=== PATIENT | female | born 1990 | race African-American/Black ===

== ENCOUNTER 2019-09-30 17:57 | Emergency (ER) | payer OTHER, SELFPAY ==
[2019-09-30 18:04] VITALS: BP 115/78; PULSE 98; RESP 16; TEMP 36.6; O2SAT 100
[2019-09-30] MEDS: SILVER SULFADIAZINE 1% CR 50 GM JAR (*BKC) 1 APPLIC TOPICAL (19:00)
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
[2019-09-30 19:42] VITALS: BP 108/68; PULSE 74; RESP 16; TEMP 36.8; O2SAT 96
== END 2019-09-30 19:42 | disposition home or self-care (01) ==
PROVIDERS: Emergency Provider Emergency Medicine
DX: T25.221A Burn of second degree of right foot, initial encounter (principal); T31.0 Burns involving less than 10% of body surface; W39.XXXA Discharge of firework, initial encounter
CPT/HCPCS: 16020; 99283; A9270

== ENCOUNTER 2020-01-27 22:48 | Emergency (ER) | payer OTHER, SELFPAY ==
--- NOTE | ~2020-01-27 | US_ITS ---
EXAMINATION: US OB <=14 wk fetus w TV DATE: 01/28/2020 00:21 INDICATION: Vaginal bleeding during first trimester TECHNIQUE: Real-time pelvic transabdominal and transvaginal ultrasound was performed. COMPARISON: None. FINDINGS: The uterus measures 8.2 x 5.3 x 5.9 cm. The endometrial thickness measures 17 mm. No intra uterine gestational sac is identified. The right ovary measures 2.5 x 1.5 x 1.4 cm. The left ovary me asures 2.8 x 1.9 x 2.4 cm. There is normal vascular flow in the ovaries. There is no free fluid in th e pelvis. IMPRESSION: 1. of unknown location. Although no intrauterine gestational sac is seen, this may be due t o early gestation. If the patient is clinically stable, recommend followup with serial beta-hCG and u ltrasound. Reviewed, dictated and finalized at location A. 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 of unknown location. Although no intrauterine gestational sac is s een, this may be due to early gestation. If the patient is clinically stable, r ecommend followup with serial beta-hCG and ultrasound.
[2020-01-27 22:52] VITALS: BP 119/82; PULSE 83; RESP 16; TEMP 36.4; O2SAT 99
--- NOTE | 2020-01-27 22:55 | ED.PREGNANCY ---
HPI - General Chief complaint: Vaginal Bleeding Stated complaint: pregant with bleeding. Time Seen by Provider: 01/27/20 22:54 Source: patient and family Mode of arrival: ambulatory Limitations: no limitations History of Present Illness HPI Narrative: Patient is a 29-year-old female G6, P4, TPAL 1132, who presents to the emergency department for evaluation of vaginal bleeding. Patient reports she had a positive at-home test approximately 7 days ago. She states this evening she developed some light vaginal spotting and lower abdominal cramping. She denies back pain, nausea or vomiting. Pain is not severe. No dysuria or hematuria. No brisk bleeding. Patient states she has a history labor and , 2 abortions, 1 spontaneous miscarriage. Patient denies recent sexual intercourse. She denies other vaginal discharge. 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 Pt blood type O positive, verified from previous in chart. Related Data Home Medications Medication Instructions Recorded Confirmed No Home Medications 09/30/19 09/30/19 Allergies Allergy/AdvReac Type Severity Reaction Status Date / Time No Known Allergies Allergy Verified 09/30/19 18:09 Review of Systems Review of Systems: Narrative: CONSTITUTIONAL: Denies fever CARDIOVASCULAR: Denies chest pain RESPIRATORY: Denies cough or dyspnea. GASTROINTESTINAL: Reports lower abdominal pain, denies nausea or vomiting GENITOURINARY: Denies dysuria, reports vaginal bleeding SKIN: Denies rash or itching. MUSCULOSKELETAL: Denies back pain, joint pain, or myalgia. NEUROLOGIC: Denies headache, numbness, or weakness. [facility] Past Medical History Medical History (Updated 01/28/20 @ 00:45 by Sue Simeon MD) Miscarriage Vaginal bleeding before 22 weeks gestation Surgical History Surgical History (Updated 01/27/20 @ 23:14 by Sue Simeon MD) H/O section Social History Social History (Updated 01/27/20 @ 23:14 by Sue Simeon MD) Smoking status: Never smoker Alcohol intake: never Substance use: never Living arrangements: with family Gender identity (if verbalized by the patient): Female Exam Narrative: Exam Narrative: GENERAL: Awake, alert, conversant HEAD: Normocephalic, atraumatic. EYES: PERRLA and EOMI. ENT: Nares clear, no rhinorrhea or epistaxis. Mucous membranes moist. NECK: Supple. CHEST: No respiratory distress, breathing even and non labored HEART: Regular rate, sinus rhythm ABDOMEN:Non distended, mild tenderness at the suprapubic area : Labia majora and minora normal without lesions. Vagina with scant blood, no brisk bleeding or large blood clots. No cervical motion tenderness. No adnexal tenderness or fullness bilaterally. No purulent discharge present. EXTREMITIES: Normal range of motion. No edema. SKIN: Warm, dry, no rash. NEURO:No focal deficits. Alert and oriented x3 Course Vital Signs Vital signs: Vital Signs Temperature 36.4 C L 01/27/20 22:52 Pulse Rate 83 01/27/20 22:52 Respiratory Rate 16 01/27/20 22:52 Blood Pressure 119/82 01/27/20 22:52 Pulse Oximetry 99 01/27/20 22:52 Temperature 36.4 C L 01/27/20 22:52 Pulse Rate 83 01/27/20 22:52 Respiratory Rate 16 01/27/20 22:52 Blood Pressure 119/82 01/27/20 22:52 Pulse Oximetry 99 01/27/20 22:52 MDM - OB/Uterine Contractions MDM Narrative Medical decision making narrative: Patient presenting for evaluation of vaginal bleeding in the setting of what seems to be first trimester early . The time of assessment, ABCs are intact and vital signs are stable. Physical exam notable for light spotting, no brisk bleeding, no cervical tenderness and cervical os is closed. No sign of cervicitis or PID. Laboratory results are reassuring. No severe anemia. Patient with beta hCG 199, very low, correlating with early , and at this point ultrasound canno
[2020-01-27 23:36] LABS: Basophils Absolute Auto 0.1 K/mm3 (0.0-0.1); Basophils Percent Auto 0.8 % (0.2-1.2); Eosinophils Absolute Auto 0.1 K/mm3 (0-0.3); Eosinophils Percent Auto 1.8 % (0-4.4); Hematocrit 37.3 % (37.0-47.0); Hemoglobin 12.1 g/dL (12.0-15.0); Immature Granulocyte Absolute 0.02 K/mm3 (0.00-0.031); Immature Granulocyte Percent A 0.3 % (0-0.5); Lymphocytes Percent Auto 30.1 % (18.3-44.2); Mean Corpuscular HGB Conc 32.4 g/dl (32-36); Mean Corpuscular Hemoglobin 29.2 pg (26-34); Mean Corpuscular Volume 89.9 fl (80-100); Mean Platelet Volume 10.1 fl (7.4-10.4); Monocytes Absolute Auto 0.3 K/mm3 (0.1-0.6); Monocytes Percent Auto 5.5 % (2.6-8.5); Neutrophils Absolute Auto 3.7 K/mm3 (1.3-6.7); Neutrophils Percent Auto 61.5 % (45.5-73.1); Platelet Count Result 291 k/mm3 (150-375); Red Blood Count 4.15 M/mm3 (4.2-5.4); Red Cell Distribution Width 12.4 % (11.5-14.5)
[2020-01-27] MEDS: SODIUM CHLORIDE 0.9% IV 1,000 ML 999 ML IV CONT (23:40)
[2020-01-27 23:41] LABS: Add Urine Microscopic? YES; Appearance Urine Clear (Clear); Bilirubin Urine Negative (Negative); Blood Urine 3+ (Negative); Color Urine Yellow (Yellow); Glucose Urine UA Negative (Negative); Ketones Urine Trace mg/dL (Negative); Leukocyte Esterase Ur Trace LEU/UL (Negative); Mucus Urine Heavy /lpf; Nitrate Urine Negative (Negative); Protein Urine 1+ mg/dL (Negative); Squamous Epithelial Cell Urine Many /hpf (Few)
[2020-01-27 23:50] LABS: Prothrombin Time 13.4 Seconds (11.1-14.7)
[2020-01-27 23:51] LABS: Partial Thromboplastin Time 28.8 SECONDS (22.3-36.8)
[2020-01-27 23:55] LABS: Alanine Aminotransferase 10 U/L (4-35); Albumin Level 4.1 g/dL (3.5-5.1); Alkaline Phosphatase 46 U/L (38-126); Anion Gap 7 mmol/L (8-16); Aspartate Amino Transferase 21 U/L (14-36); Bilirubin,Total 0.2 mg/dL (0.2-1.3); Blood Urea Nitrogen 17 mg/dL (7-17); Calcium 9.1 mg/dL (8.4-10.2); Carbon Dioxide 28 mmol/L (22-30); Chloride 106 mmol/L (98-107); Estimated CRCL calculation 82 ml/min; Estimated Glomerular Filt Rate > 60; Glucose 90 mg/dL (65-105); Potassium 3.4 mmol/L (3.4-5.0); Sodium 141 mmol/L (137-145)
[2020-01-28 00:09] LABS: Specific Grav Ur 1.033 (1.001-1.035)
[2020-01-28 00:12] LABS: Beta HCG Quantitative 199.73 mIU/ML
[2020-01-28 01:09] VITALS: BP 107/67; PULSE 78; RESP 14; TEMP 36.6; O2SAT 97
== END 2020-01-28 01:12 | disposition home or self-care (01) ==
PROVIDERS: Emergency Provider Emergency Medicine
DX: O20.9 Hemorrhage in early pregnancy, unspecified (principal); Z3A.01 Less than 8 weeks gestation of pregnancy
CPT/HCPCS: 36415; 76801; 76817; 80053; 81001; 81025; 84702; 85025; 85461; 85610; 85730; 87070; 87491; 87591; 87808; 96361; 96374; 99284; J0131; J7030

== ENCOUNTER 2020-01-31 15:10 | Outpatient (CLI) | payer OTHER, SELFPAY ==
[2020-01-31 16:16] LABS: Beta HCG Quantitative 116.49 mIU/ML
== END 2020-01-31 15:11 | disposition home or self-care (01) ==
LOC: ANHLAB 15:11
PROVIDERS: Visit Provider Emergency Medicine
DX: O20.9 Hemorrhage in early pregnancy, unspecified (principal); Z3A.00 Weeks of gestation of pregnancy not specified
CPT/HCPCS: 36415; 84702

== ENCOUNTER 2020-02-01 15:36 | Emergency (ER) | payer OTHER, SELFPAY ==
[2020-02-01 16:26] VITALS: BP 138/88; PULSE 85; RESP 16; TEMP 36.9; O2SAT 99
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
[2020-02-01] MEDS: ACETAMINOPHEN 500 MG TABLET 1000 MG PO (19:07)
[2020-02-01 19:17] VITALS: BP 133/82; PULSE 85; RESP 18; TEMP 36.7; O2SAT 98
[2020-02-02 14:56] LABS: SARS-CoV-2 RNA PCR Negative
== END 2020-02-01 19:18 | disposition home or self-care (01) ==
PROVIDERS: Emergency Medicine Emergency Medical Services; Emergency Provider Emergency Medicine
DX: J06.9 Acute upper respiratory infection, unspecified (principal); Z20.828 Contact with and (suspected) exposure to other viral communicable diseases
CPT/HCPCS: 87635; 99283; A9270; C9803; U0003

== ENCOUNTER 2020-11-09 17:17 | Emergency (ER) | payer OTHER, SELFPAY ==
--- NOTE | 2020-11-09 17:20 | ED.FEMALEGU ---
HPI - Female Genitourinary General Chief complaint: PER DIEM INTERPRETER Stated complaint: VAGINAL DISCHARGE Time Seen by Provider: 11/09/20 17:20 Source: patient and RN notes reviewed History of Present Illness HPI Narrative: Patient is a 30-year-old female who presents the urgent care with complaints of vaginal discharge. Patient states that she has a history of BV and believes that it is another recurrence. Patient states that she tried an atvu-osh-fobrdyg probiotic to help balance out her pH but it has not been improving. Patient states that she does have a slight foul odor. Denies of any urinary symptoms such as frequency, urgency, hematuria, pressure. Patient states that she was checked for STDs in June but would like a recheck while she is at the facility today. Patient states that she did have an appointment with her PER DIEM INTERPRETER this afternoon and was not going to make it so they advised her to go to urgent care . No other acute complaints. No acute distress noted. Patient aware of the plan of care. Some parts of this dictation were generated by voice recognition software and may contain typographical and/or grammatical inaccuracies. Related Data Allergies Allergy/AdvReac Type Severity Reaction Status Date / Time No Known Allergies Allergy Verified 02/01/20 18:26 Review of Systems Review of Systems: CONSTITUTIONAL: Denies fever, chills, or sweats. EYES: Denies visual changes, redness, or discharge. ENT: Denies rhinorrhea, congestion, sore throat, or otalgia. CARDIOVASCULAR: Denies chest pain, palpitations, or edema. RESPIRATORY: Denies cough or dyspnea. GASTROINTESTINAL: Denies abdominal pain, nausea, vomiting, or diarrhea. GENITOURINARY: Denies dysuria or hematuria. Reports of foul-smelling vaginal discharge SKIN: Denies rash or itching. MUSCULOSKELETAL: Denies back pain, joint pain, or myalgia. NEUROLOGIC: Denies headache, numbness, or weakness. All other systems reviewed are negative, except as documented in HPI. [facility] Past Medical History Medical History Miscarriage Vaginal bleeding before 22 weeks gestation Surgical History Surgical History H/O section Social History Social History Smoking status: Never smoker Alcohol intake: never Substance use: never Gender identity (if verbalized by the patient): Female Comments At the time of my signature, I reviewed and agree with the nursing past medical, surgical, social, and family history. There is no relevant family history pertinent to the patient complaint. Exam Narrative: GENERAL: This is a well-nourished, well-developed patient, in no apparent distress. HEAD: normocephalic, atraumatic. EYES: PERRL. Sclera clear/white. Vision is grossly intact. EARS: External ears normal NOSE: External nose normal with no obvious nasal discharge, nares without redness, no rhinorrhea. THROAT: Mucous membranes moist NECK: Neck supple CARDIOVASCULAR: Regular rate and rhythm without murmurs, gallops, or rubs. RESPIRATORY: Clear to auscultation. Breath sounds equal bilaterally. No wheezes, rales, or rhonchi. : Thick milky white vaginal discharge, foul-smelling SKIN: warm, intact with no suspicious lesions or rash, good texture and turgor. NEURO: awake, alert, and oriented to person, place and time. There were no obvious focal neurologic abnormalities. EXTREMITIES: No clubbing, cyanosis, or edema. BACK: Negative CVA tenderness Course Vital Signs Vital signs: Vital Signs Temperature 98.4 F 11/09/20 17:24 Pulse Rate 113 H 11/09/20 17:24 Respiratory Rate 16 11/09/20 17:24 Blood Pressure 122/85 11/09/20 17:24 Pulse Oximetry 98 11/09/20 17:24 Temperature 98.4 F 11/09/20 17:24 Pulse Rate 113 H 11/09/20 17:24 Respiratory Rate 16 11/09/20 17:24 Blood Pressure 122/85 11/09/20
[2020-11-09 17:24] VITALS: BP 122/85; PULSE 113; RESP 16; TEMP 36.9; O2SAT 98
== END 2020-11-09 18:00 | disposition home or self-care (01) ==
PROVIDERS: Emergency Provider Nurse Practitioner Family
DX: N76.0 Acute vaginitis (principal)
CPT/HCPCS: 87070; 87491; 87591; 87661; 99214; G0463

== ENCOUNTER 2020-11-27 18:51 | Emergency (ER) | payer OTHER, SELFPAY ==
[2020-11-27 19:19] VITALS: BP 116/85; PULSE 80; RESP 16; TEMP 36.6; O2SAT 100
[2020-11-27] MEDS: ALBUTEROL SULFATE NEB 2.5 MG/3 ML INH INHALATION (20:00)
[2020-11-27] MEDS: IPRATROPIUM BR 0.02% INH SOLN 0.5 MG/2.5 ML VIAL INHALATION (20:01)
--- NOTE | 2020-11-27 20:19 | ED.SOB ---
HPI - SOB/Dyspnea General Chief Complaint: Shortness of Breath/Dyspnea Stated Complaint: SOB/ Time Seen by Provider: 11/27/20 20:11 Source: patient and RN notes reviewed Mode of arrival: ambulatory Limitations: no limitations History of Present Illness HPI Narrative: Patient presents today complaint of a 1 week history of increased allergy symptoms. Yesterday she started coughing with copious ingestion. Today, she states she started wheezing with shortness of breath. She has has been taking Zyrtec and Benadryl, with mild relief. Denies history of asthma. MD elicited complaint: shortness of breath and cough Related Data Allergies Allergy/AdvReac Type Severity Reaction Status Date / Time No Known Allergies Allergy Verified 11/27/20 19:52 Review of Systems Review of Systems: CONSTITUTIONAL: Denies body aches, fever, chills, or sweats. EYES: Denies visual changes, redness, or discharge. ENT: Denies rhinorrhea, sore throat, or otalgia.+ Congestion, postnasal drip CARDIOVASCULAR: Denies chest pain, palpitations, or edema. RESPIRATORY: + Cough, wheezing, shortness of breath GASTROINTESTINAL: Denies abdominal pain, nausea, vomiting, or diarrhea. GENITOURINARY: Denies dysuria or hematuria. SKIN: Denies rash, itching, or wounds. MUSCULOSKELETAL: Denies back pain, joint pain, or myalgia. NEUROLOGIC: Denies headache, numbness, tingling, or weakness. PSYCH: Denies depression or anxiety. PMFSH Past Medical History Medical History Miscarriage Vaginal bleeding before 22 weeks gestation Surgical History Surgical History H/O section Social History Social History Smoking status: Never smoker Alcohol intake: never Substance use: never Gender identity (if verbalized by the patient): Female Comments At time of signature, I have reviewed and agree with nursing past medical, surgical, social and family history unless otherwise noted. Please see nursing chart for further information. There is no relevant family history pertinent to the presenting complaint Exam Narrative: GENERAL: Well-appearing, well-nourished, and in no acute distress. HEAD: Normocephalic, atraumatic. EYES: EOMI. No redness or drainage. Conjunctivae normal. ENT: Mucous membranes pink and moist. Nares congested with copious rhinorrhea. TMs normal bilaterally. Throat normal. Uvula midline. NECK: Normal AROM. Supple. No lymphadenopathy. CHEST: No respiratory distress. Clear to auscultation after DuoNeb. HEART: Regular rate and rhythm. No murmur appreciated. Normal peripheral pulses. EXTREMITIES: Normal range of motion. No edema. SKIN: Warm, dry, no rash. Capillary refill normal. Normal skin turgor. NEURO: No focal deficits. Alert and oriented x3. Gait steady. PSYCH: Normal affect. No signs of depression or anxiety. Course Vital Signs Vital signs: Vital Signs Temperature 97.8 F 11/27/20 19:19 Pulse Rate 80 11/27/20 19:19 Respiratory Rate 16 11/27/20 19:19 Blood Pressure 116/85 11/27/20 19:19 Pulse Oximetry 100 11/27/20 19:19 Temperature 97.8 F 11/27/20 19:19 Pulse Rate 80 11/27/20 19:19 Respiratory Rate 16 11/27/20 19:19 Blood Pressure 116/85 11/27/20 19:19 Pulse Oximetry 100 11/27/20 19:19 Reviewed. Pt has been instructed to follow up with her PCP regarding her elevated blood pressure today. MDM - SOB/Dyspnea Differential Diagnosis Differential diagnosis: Likely other (Allergies, bronchitis, pneumonia, URI, rhinitis) Critical Care Time Critical Care Time Critical Care Time: No Discharge Plan Discharge Clinical Impression: Bronchitis, Environmental allergies Patient Disposition: Home, Self-Care Condition: Stable Instructions: Acute Bronchitis (ED) Additional Instructions: Use the inhaler and maikel
[2020-11-27 20:20] VITALS: PULSE 98; RESP 20; O2SAT 100
== END 2020-11-27 20:27 | disposition home or self-care (01) ==
PROVIDERS: Emergency Provider Nurse Practitioner
DX: J40 Bronchitis, not specified as acute or chronic (principal); J30.2 Other seasonal allergic rhinitis
CPT/HCPCS: 99213; G0463

== ENCOUNTER 2021-07-28 15:32 | Emergency (ER) | payer OTHER, SELFPAY ==
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
[2021-07-28 15:34] VITALS: BP 128/65; PULSE 102; RESP 14; TEMP 36.8; O2SAT 100
[2021-07-28] MEDS: HYDROcodone/acetaminophen (*CRX) 5-325 MG TABLET 1 TAB PO (16:26)
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
== END 2021-07-28 17:23 | disposition home or self-care (01) ==
PROVIDERS: Emergency Provider Emergency Medicine
DX: S19.9XXA Unspecified injury of neck, initial encounter (principal); S09.90XA Unspecified injury of head, initial encounter; V49.9XXA Car occupant (driver) (passenger) injured in unspecified traffic accident, initial encounter
CPT/HCPCS: 70450; 72125; 99284; A9270

== ENCOUNTER 2021-10-11 19:24 | Emergency (ER) | payer OTHER, MEDICAID, SELFPAY ==
--- NOTE | 2021-10-11 19:28 | ED.FEMALEGU ---
HPI - Female Genitourinary General Chief complaint: Urogenital-Female Stated complaint: UTI SYMPTOMS Time Seen by Provider: 10/11/21 19:35 Source: patient and RN notes reviewed Mode of arrival: ambulatory Limitations: no limitations History of Present Illness HPI Narrative: 31-year-old female presents concern for vaginal discharge and vaginal odor. She reports she was treated for a possible urinary tract infection with Macrobid. Reports she did not have any improvement in symptoms. She reports she was told by the clinic that treated her today that her urine was clean and she could stop taking the Macrobid. She reports at that time she was also tested for STDs which were negative. She reports a history of bacterial vaginosis. Reports that the symptoms are similar to her BV symptoms. She denies vaginal itching, vaginal lesions. Reports the discharge is clear and foul-smelling. She denies urgency, frequency, dyspareunia, abdominal pain, back pain, fever, bodies, chills, sweats MD elicited complaint: vaginal discharge Related Data Allergies Allergy/AdvReac Type Severity Reaction Status Date / Time No Known Allergies Allergy Verified 07/28/21 15:45 Review of Systems Review of Systems: CONSTITUTIONAL: Denies malaise, chills, sweats, or fever. CARDIOVASCULAR: Denies chest pain, palpitations, or edema. RESPIRATORY: Denies cough or dyspnea. GASTROINTESTINAL: Denies abdominal pain, nausea, vomiting, diarrhea GENITOURINARY: Denies dysuria, frequency, urgency, suprapubic pressure. Denies flank pain or hematuria. Reports vaginal discharge and odor SKIN: Denies rash or itching. MUSCULOSKELETAL: Denies back pain or myalgia. All systems reviewed & are unremarkable except as noted in HPI and below PMFSH Past Medical History Medical History Miscarriage Vaginal bleeding before 22 weeks gestation Surgical History Surgical History H/O section Social History Social History Smoking status: Never smoker Alcohol intake: never Substance use: never Gender identity (if verbalized by the patient): Female Comments At time of signature, agree with nursing past medical, surgical, social and family history. There is no relevant family history pertinent to the presenting complaint Exam Narrative: GENERAL: Well-appearing, well-nourished, and in no acute distress. HEAD: Normocephalic. EYES: PERRLA, conjunctivae clear. NECK: Supple. No lymphadenopathy CHEST: Clear to auscultation. No respiratory distress. HEART: Regular rate and rhythm. ABDOMEN: Soft, nontender upon palpation, nondistended, normal active bowel sounds, no palpable or pulsatile masses, no guarding. No CVA tenderness SKIN: Warm, dry, no rash. NEURO: Alert and oriented x3. PSYCH: Normal mood and affect Course Course Emergency Course: We will treat patient presumptively for bacterial vaginosis based on symptoms, recent history, negative urine and STD testing. Patient is aware of diagnosis, understands and agrees to treatment plan. Anticipatory guidance given. Patient agrees to follow-up as directed and is aware of reasons to seek care at the emergency department. Portions of this record may have been created with voice recognition software Level of Care: Express Care Visit Vital Signs Vital signs: Vital Signs Temperature 97.5 F L 10/11/21 19:31 Pulse Rate 78 10/11/21 19:31 Respiratory Rate 18 10/11/21 19:31 Blood Pressure 138/97 H 10/11/21 19:31 Pulse Oximetry 100 10/11/21 19:31 Oxygen Delivery Room Air 10/11/21 19:31 Temperature 97.5 F L 10/11/21 19:31 Pulse Rate 78 10/11/21 19:31 Respiratory Rate 18 10/11/21 19:31 Blood Pressure 138/97 H 10/11/21 19:31 Pulse Oximetry 100 10/11/21 19:31 Oxygen Delivery Room Air 10/11/21 19:31 Reviewed. MDM - Female Nae
[2021-10-11 19:31] VITALS: BP 138/97; PULSE 78; RESP 18; TEMP 36.4; O2SAT 100
== END 2021-10-11 19:48 | disposition home or self-care (01) ==
PROVIDERS: Emergency Provider Nurse Practitioner
DX: N76.0 Acute vaginitis (principal)
CPT/HCPCS: 81003; 99213; G0463

== ENCOUNTER 2022-08-28 19:32 | Emergency (ER) | payer BC, OTHER, SELFPAY ==
[2022-08-28 19:36] VITALS: BP 126/90; PULSE 94; RESP 15; TEMP 36.3; O2SAT 100
--- NOTE | 2022-08-28 20:27 | ED.GENADULT ---
HPI - General Adult General Chief complaint: Unspecified Stated complaint: vaginal bleeding Time Seen by Provider: 08/28/22 19:50 History of Present Illness HPI narrative: This is a , 32-year-old female presenting ED with chief complaint of vaginal bleeding after test. Patient had a positive test on August 16. Last menstrual period before that was July 14. On the she started having bleeding for 3 or 4 days. the bleeding has now stopped. She does not have any abdominal pain or any physical complaints. She has taken a test which was negative. Related Data Allergies Allergy/AdvReac Type Severity Reaction Status Date / Time No Known Allergies Allergy Verified 08/28/22 19:57 [facility] Past Medical History Medical History Miscarriage Vaginal bleeding before 22 weeks gestation Surgical History Surgical History H/O section Social History Social History Smoking status: Never smoker Alcohol intake: never Substance use: never Living arrangements: with family Gender identity (if verbalized by the patient): Female Exam Narrative: APPEARANCE: No apparent distress. Head: atraumatic. EYES: EOMI, NOSE: Atraumatic NECK: Trachea midline RESPIRATORY: No increased rate of breathing CARDIOVASCULAR: RRR, ABDOMINAL: abdomen is soft nontender no guarding or rebound MUSCULOSKELETAl: No obvious deformities NEURO: Alert. Moving 4/4 extremities SKIN:: Warm, dry. Normal color PSYCHIATRIC: Normal affect Course Vital Signs Vital signs: Vital Signs Temperature 97.4 F L 08/28/22 19:36 Pulse Rate 94 08/28/22 19:36 Respiratory Rate 15 08/28/22 19:36 Blood Pressure 126/90 08/28/22 19:36 Pulse Oximetry 100 08/28/22 19:36 Oxygen Delivery Room Air 08/28/22 19:36 Temperature 97.4 F L 08/28/22 19:36 Pulse Rate 94 08/28/22 19:36 Respiratory Rate 15 08/28/22 19:36 Blood Pressure 126/90 08/28/22 19:36 Pulse Oximetry 100 08/28/22 19:36 Oxygen Delivery Room Air 08/28/22 19:36 Medical Decision Making MDM Narrative Medical decision making narrative: -Presentation: 32-year-old female presenting after positive test followed by some bleeding. 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 Dx tests considered but not ordered: transvaginal ultrasound -patient is no longer having bleeding has benign abdominal exam with no pain. -Procedures: None -Interventions: none -Shared decision making / Disposition: patient discharged with OBGYN follow-up -RX Vital Signs Vital Signs: Vital Signs Temperature 97.4 F L 08/28/22 19:36 Pulse Rate 94 08/28/22 19:36 Respiratory Rate 15 08/28/22 19:36 Blood Pressure 126/90 08/28/22 19:36 Pulse Oximetry 100 08/28/22 19:36 Oxygen Delivery Room Air 08/28/22 19:36 Temperature 97.4 F L 08/28/22 19:36 Pulse Rate 94 08/28/22 19:36 Respiratory Rate 15 08/28/22 19:36 Blood Pressure 126/90 08/28/22 19:36 Pulse Oximetry 100 08/28/22 19:36 Oxygen Delivery Room Air 08/28/22 19:36 Discharge Plan Discharge Clinical Impression: Complete miscarriage Patient Disposition: Home, Self-Care Condition: Stable Instructions: Antibiotic Form, Miscarriage (ED) Additional Instructions: You were seen in the emergency department after a suspected miscarriage. Please follow-up wi
[2022-08-28 21:00] VITALS: BP 134/72; PULSE 74; RESP 15; O2SAT 98
== END 2022-08-28 21:01 | disposition home or self-care (01) ==
LOC: ANHED 20:54
PROVIDERS: Emergency Provider Emergency Medicine
DX: O03.9 Complete or unspecified spontaneous abortion without complication (principal)
CPT/HCPCS: 81025; 99283